=== PATIENT | female | born 1985 | race Caucasian/White ===

== ENCOUNTER → 2019-05-11 | Outpatient (CLI) | payer OTHER ==
--- NOTE | 2019-05-11 12:21 | Diagnostic Imaging Report ---
CLINICAL INDICATION: Patient with pain in neck for the last eight months. No known injury. EXAM: X-ray of the cervical spine, three views. COMPARISON: None. FINDINGS: There is no acute fracture or dislocation. Intervertebral disc heights are maintained. There are no significant degenerative changes. Odontoid views are unremarkable. There is no significant prevertebral soft tissue swelling. IMPRESSION: Unremarkable x-ray of the cervical spine. Dictated by: Dictated on workstation # [id number]
== END ==
LOC: RAD FS 11:51
PROVIDERS: ATTEND Nurse Practitioner Family
DX: M54.2 Cervicalgia (principal)
CPT/HCPCS: 72040

== ENCOUNTER → 2019-09-06 | Outpatient (CLI) | payer OTHER ==
--- NOTE | 2019-09-06 10:06 | Diagnostic Imaging Report ---
INDICATION: Low back pain, no known injury. TECHNIQUE: AP, lateral, and spot imaging of the lumbar spine. CORRELATION STUDY: None. FINDINGS: There is transitional anatomy with sacralization at L5. The lumbar spinal alignment is anatomic. The lumbar vertebral body heights are maintained. Spina bifida occulta defect at the L5-S1 level is present. The SI joints are unremarkable. IMPRESSION: No radiographic evidence for acute bony abnormality of the lumbar spine. Lumbosacral transitional anatomy. Dictated by: Dictated on workstation # [id number]
== END ==
LOC: RAD FS 09:25
PROVIDERS: ATTEND Nurse Practitioner Family
DX: M54.5 Low back pain (principal)
CPT/HCPCS: 72100

== ENCOUNTER → 2019-10-19 | Outpatient (CLI) | payer OTHER ==
--- NOTE | 2019-10-19 11:56 | Diagnostic Imaging Report ---
PROCEDURE: MRI lumbar spine. TECHNIQUE: Multiplanar, multisequence MRI of the lumbar spine was performed without contrast. INDICATION: Chronic low back pain. COMPARISON: No prior studies are available for comparison. FINDINGS: Curvature and alignment of the lumbar spine is normal. Vertebral body heights are maintained. Marrow signal intensity is unremarkable. No geographic marrow lesion or fracture is seen. There is some mild desiccation of the L4-L5 disc compatible with mild degenerative change. Disc height is maintained. The conus is unremarkable at the L1 level. T12-L1: The central canal is widely patent. Neural foramina are widely patent. L1-L2: Central canal is patent. Neural foramina are patent. L2-L3: The central canal is patent. Neural foramina are patent. L3-L4: Very mild wide-based midline disc bulge is noted producing slight indentation upon the ventral thecal sac. Central canal remains patent. There is moderate degenerative facet disease at this level. No neural foraminal stenosis is seen. L4-L5: Mild wide-based midline disc bulge is noted but no resultant central canal stenosis is detected. Neural foramina are widely patent. There are degenerative facet changes. L5-S1: Central canal and neural foramina are widely patent. The paraspinous tissues are unremarkable. IMPRESSION: Mild lower lumbar disc bulging and facet arthropathy. No resultant central canal or neural foraminal stenosis is identified. Dictated by: Dictated on workstation # [id number]
== END ==
LOC: RAD 09:35
PROVIDERS: ATTEND Nurse Practitioner Family
DX: M51.26 Other intervertebral disc displacement, lumbar region (principal); M47.816 Spondylosis without myelopathy or radiculopathy, lumbar region
CPT/HCPCS: 72148

== ENCOUNTER → 2020-01-23 | Outpatient (CLI) | payer OTHER ==
--- NOTE | 2020-01-23 12:23 | Diagnostic Imaging Report ---
INDICATION: 1st trimester spotting. COMPARISON: None available. TECHNIQUE: Transvaginal sonographic imaging of the pelvis was performed. FINDINGS: The uterus is retroverted. There is an anechoic gestational sac with normal morphology appropriately positioned at the level of the uterine fundus. Within the gestational sac, there is a normal-appearing yolk sac. Additionally pole is present which has a crown-rump length approximately 4-5 mm. No cardiac activity is seen at this time, although this is not atypical for an early normal gestation a crown-rump length less than 5 mm. A small amount of manuelito-gestational hemorrhage is present and encases less than 50% of gestational sac. Right ovary is normal in size measuring 1.8 x 2.1 x 1.0 cm. Left ovary measures 2.2 x 1.7 x 2.5 cm. Blood flow is seen in both ovaries by color Doppler imaging. IMPRESSION: 1. Intrauterine gestational sac has a yolk sac and pole that measures less than 5 mm. No cardiac activity is seen at this time which may be due to normal early development, although demise is possible as well. Follow-up beta hCG and ultrasound are suggested as deemed clinically indicated. 2. Moderate-sized manuelito-gestational hemorrhage encompassing approximately 50% of the gestational sac. Dictated by: Dictated on workstation # [id number]
== END ==
LOC: RAD 10:30
PROVIDERS: ATTEND Family Medicine
DX: O26.851 Spotting complicating pregnancy, first trimester (principal); Z3A.00 Weeks of gestation of pregnancy not specified
CPT/HCPCS: 76801; 76817

== ENCOUNTER → 2020-05-21 | Outpatient (CLI) | payer BC ==
[2020-05-21 10:43] LABS: HEMOGLOBIN 12.5 G/DL (11.5-16.0); MEAN PLATELET VOLUME 9.4 FL (7.4-10.4); WHITE BLOOD COUNT 7.7 10^3/uL (4.3-11.0)
== END ==
LOC: LAB FS 09:31
PROVIDERS: ATTEND Family Medicine
DX: O09.91 Supervision of high risk pregnancy, unspecified, first trimester (principal); Z3A.00 Weeks of gestation of pregnancy not specified
CPT/HCPCS: 36415; 85027; 86703; 86762; 86780; 86850; 86900; 86901; 87088; 87340

== ENCOUNTER → 2020-06-14 | Outpatient (CLI) | payer BC | LOC: FS 16:04 | PROVIDERS: ATTEND Family Medicine | DX: Z34.90 Encounter for supervision of normal pregnancy, unspecified, unspecified trimester (principal); Z3A.00 Weeks of gestation of pregnancy not specified ==

== ENCOUNTER → 2020-11-13 | Outpatient (CLI) | payer BC | LOC: LABNPT 16:02 | PROVIDERS: ATTEND Family Medicine | DX: Z34.93 Encounter for supervision of normal pregnancy, unspecified, third trimester (principal); Z3A.00 Weeks of gestation of pregnancy not specified | CPT/HCPCS: 87070; 87205 ==

== ENCOUNTER 2020-12-06 10:23 | Inpatient (IN) | payer OTHER ==
[~2020-12-06] VITALS: Ht 162.6 cm; Wt 91.2 kg
[2020-12-06] VITALS (44 sets, daily range): BP systolic 76–143; BP diastolic 39–90
[2020-12-06] MEDS ORDERED: MINERAL OIL CONCENTRATE 99.9% 15 ML UDC TOP PRN (12:00)
[2020-12-06] MEDS ORDERED: LIDOCAINE/EPI 2% 1:200,00 (XYLOCAINE) 20 ML VIAL INJ PRN (12:00)
[2020-12-06 12:26] LABS: BASOPHILS % (AUTO) 0 % (0-10); EOSINOPHILS # (AUTO) 0.1 10^3/uL (0.0-0.3); EOSINOPHILS % (AUTO) 1 % (0-10); HEMATOCRIT 36 % (35-52); HEMOGLOBIN 11.5 g/dL (11.5-16.0); LYMPHOCYTES # (AUTO) 1.3 10^3/uL (1.0-4.0); LYMPHOCYTES % (AUTO) 14 % (12-44); MEAN CORPUSCULAR HEMOGLOBIN 29 pg (25-34); MEAN CORPUSCULAR HGB CONC 32 g/dL (32-36); MEAN CORPUSCULAR VOLUME 88 fL (80-99); MEAN PLATELET VOLUME 10.1 fL (9.0-12.2); MONOCYTES # (AUTO) 0.5 10^3/uL (0.0-1.0); MONOCYTES % (AUTO) 5 % (0-12); NEUTROPHILS # (AUTO) 7.8 10^3/uL (1.8-7.8); NEUTROPHILS % (AUTO) 80 % (42-75); PLATELET COUNT 205 10^3/uL (130-400); WHITE BLOOD COUNT 9.8 10^3/uL (4.3-11.0)
[2020-12-06] MEDS ORDERED: OXYTOCIN PRE-MIX DRIP 500 ML IV SCH ×2 (12:45→19:30)
[2020-12-06] MEDS: D5 LR IV SOLUTION 1,000 ML IV SCH ×2 (12:50→17:15)
[2020-12-06] MEDS ORDERED: CATHETER FLUSH 10 ML SYR IV SCH ×2 (14:00→22:00)
[2020-12-06] MEDS ORDERED: fentaNYL 2 mcg/ml BUPIVA 0.125 100 ML ONE (15:02)
[2020-12-06] MEDS ORDERED: BUPIVACAINE 0.25% 30 ML (SENSORCAINE) VIAL ONE (15:05)
[2020-12-06] MEDS ORDERED: fentaNYL INJ 100 MCG/2 ML AMP ONE (15:05)
[2020-12-06] MEDS ORDERED: diphenhydrAMINE 50 MG/ML INJ (BENADRYL) IV PRN (15:45)
[2020-12-06] MEDS ORDERED: ONDANSETRON 4 MG/2 ML (SDV) Z0FRAN IV PRN (15:45)
[2020-12-06] MEDS ORDERED: NALOXONE 0.4 MG/ML 1 ML (NARCAN) VIAL IV PRN ×2 (15:45→19:30)
[2020-12-06] MEDS ORDERED: EPIDURAL (fentaNYL 2 MCG/ML BUPIVA 0.125%)100 ML BAG EPI PRN (15:45)
[2020-12-06] MEDS ORDERED: LACTATED RINGERS 1,000 ML IV SCH (15:45)
--- NOTE | 2020-12-06 16:39 | History & Physical-OB ---
OB - Chief Complaint & HPI Date/Time Date of Admission: Date of Admission: Dec 06, 2020 at 11:49 Date seen by a Provider: Dec 06, 2020 Time Seen by a Provider: 12:00 Chief Complaint/History OB-Reason for Admission/Chief: Onset of Labor Hx : 6 Hx Para: 3 Expected Date of Delivery: Dec 06, 2020 Gestational Age in Weeks: 38 Gestational Age in Days: 2 Admission Nurse Assessment Rev: Yes Allergies and Home Medications Allergies Coded Allergies: Sulfa (Sulfonamide Antibiotics) (Verified Allergy, Unknown, Hives, 12/06/20) Patient Home Medication List Home Medication List Reviewed: Yes OB - History Hx of Present Care: Yes Ultrasounds: Normal mid trimester US Obstetrical Complications: None Medical Complications: None Obstetrical History Hx : 6 Hx Para: 3 Hx Total # of Abortions (Spona: 2 Patient Past Medical History n/a Social History/Family History Alcohol Use: Denies Use Recreational Drug Use: No Immunizations Hepatitis A: No Hepatitis B: No OB - Admission Exam Physical Exam Vitals: Vital Signs 12/06/20 10:57 Temp 36.9 Pulse 99 Resp 18 Pulse Ox 98 O2 Delivery Room Air HEENT: NCAT Heart: Rhythm Normal Lungs: Clear Abdomen: Gravid Extremities: Normal Reflexes: Normal Cervical Dilatation: 4cm Effacement: 75% Station: -1 Membranes: Intact Heart Rate: 130's Accelerations: Accelerations Present Decelerations: No Decelerations Short Term Variability: Present Fund Manager Variability: Average (6-25) Contractions on Admission: 6-10 Minutes Apart Intensity: Mild Labs Laboratory Tests Test 12/06/20 12:10 Range/Units White Blood Count 9.8 4.3-11.0 10^3/uL Red Blood Count 4.04 3.80-5.11 10^6/uL Hemoglobin 11.5 11.5-16.0 g/dL Hematocrit 36 35-52 % Mean Corpuscular Volume 88 80-99 fL Mean Corpuscular Hemoglobin 29 25-34 pg Mean Corpuscular Hemoglobin Concent 32 32-36 g/dL Red Cell Distribution Width 14.8 H 10.0-14.5 % Platelet Count 205 130-400 10^3/uL Mean Platelet Volume 10.1 9.0-12.2 fL Immature Granulocyte % (Auto) 1 % Neutrophils (%) (Auto) 80 H 42-75 % Lymphocytes (%) (Auto) 14 12-44 % Monocytes (%) (Auto) 5 0-12 % Eosinophils (%) (Auto) 1 0-10 % Basophils (%) (Auto) 0 0-10 % Neutrophils # (Auto) 7.8 1.8-7.8 10^3/uL Lymphocytes # (Auto) 1.3 1.0-4.0 10^3/uL Monocytes # (Auto) 0.5 0.0-1.0 10^3/uL Eosinophils # (Auto) 0.1 0.0-0.3 10^3/uL Basophils # (Auto) 0.0 0.0-0.1 10^3/uL Immature Granulocyte # (Auto) 0.1 0.0-0.1 10^3/uL OB - Assessment/Plan/Diagnosis Assessment Assessment: active labor, induction of labor (35 yo ) Admission Dx 35 yo @ 38.6 Active labor GBS neg AMA Admission Status: Inpatient Order (span 2 midnights) Reason for Inpatient Admission: Active labor at 38 weeks Plan Plan: Expectant Management JIGNESH WONG DO Dec 06, 2020 16:39
[2020-12-06] MEDS ORDERED: HYDROcodone/APAP 5 MG/325 MG (LORTAB) TAB PO PRN (19:30)
[2020-12-06] MEDS ORDERED: MEASLES,MUMPS,RUBELLA 1 EA INJ SQ ONE (19:30)
[2020-12-06] MEDS ORDERED: TETANUS,DIPTH,PERTUSS P/F (BOOSTRIX) 0.5 ML VIAL IM ONE (19:30)
[2020-12-06] MEDS ORDERED: WITCH HAZEL(TUCKS) 40 EA JAR TOP PRN (19:30)
[2020-12-06] MEDS ORDERED: DIBUCAINE 1% OINTMENT 30 GM TUBE TOP PRN (19:30)
[2020-12-06] MEDS ORDERED: BENZOCAINE/MENTHOL (DERMOPLAST) 56 ML CAN TP PRN (19:30)
--- NOTE | 2020-12-06 19:32 | OB Labor & Delivery Record ---
L&D History Date of Service Date of Service: Dec 06, 2020 History Expected Date of Delivery: Dec 06, 2020 Gestational Age in Weeks: 38 Hx : 6 Hx Para: 3 Complications Events: Routine care Operative Indications (Cesarea: N/A-Vaginal Delivery Intrapartal Events: None L&D Stage1 Stage One Onset of Labor - Date: Dec 06, 2020 Monitors and Tracing Monitor Mode: Internal Heart Rate: 130 Monitor Decelerations: None Station: +1 Short Term Variability: Present Presentation: Vertex Vital Signs VS - Last 72 Hours, by Label 12/06/20 12/06/20 12/06/20 12/06/20 10:54 10:57 12:30 13:00 Temp 36.9 36.9 Pulse 99 99 96 86 Resp 18 18 18 18 B/P (MAP) 118/75 (89) 119/72 (88) Pulse Ox 98 98 O2 Delivery Room Air Room Air Room Air Room Air 12/06/20 12/06/20 12/06/20 12/06/20 13:15 13:30 13:45 14:00 Temp 36.5 Pulse 82 84 81 81 Resp 18 18 18 18 B/P (MAP) 106/56 (73) 105/58 (74) 113/68 (83) 113/67 (82) O2 Delivery Room Air Room Air Room Air Room Air 12/06/20 12/06/20 12/06/20 12/06/20 14:15 14:30 14:45 15:00 Pulse 83 85 75 75 Resp 18 18 18 18 B/P (MAP) 119/73 (88) 120/74 (89) 117/62 (80) 119/76 (90) O2 Delivery Room Air Room Air Room Air Room Air 12/06/20 12/06/20 12/06/20 12/06/20 15:15 15:20 15:25 15:30 Pulse 86 81 78 86 Resp 18 18 18 18 B/P (MAP) 136/71 (92) 123/76 (92) 118/76 (90) Pulse Ox 99 99 99 100 O2 Delivery Room Air Room Air Room Air Room Air 12/06/20 12/06/20 12/06/20 12/06/20 15:36 15:40 15:42 15:44 Pulse 62 71 78 78 Resp 18 18 18 18 B/P (MAP) 76/39 (51) 84/48 (60) 82/48 (59) 86/51 (63) Pulse Ox 99 99 99 98 O2 Delivery Room Air Room Air Room Air Room Air 12/06/20 12/06/20 12/06/20 12/06/20 15:45 15:46 15:48 15:51 Pulse 84 65 96 77 Resp 18 18 18 18 B/P (MAP) 86/51 (63) 107/58 (74) 99/56 (70) 120/60 (80) Pulse Ox 98 99 99 99 O2 Delivery Room Air Room Air Room Air Room Air 12/06/20 12/06/20 12/06/20 12/06/20 15:53 15:55 16:00 16:05 Pulse 101 102 81 Resp 18 18 18 B/P (MAP) 101/63 (76) 108/65 (79) 116/61 (79) Pulse Ox 99 99 100 O2 Delivery Room Air Room Air Room Air 12/06/20 12/06/20 12/06/20 12/06/20 16:15 16:20 16:30 16:45 Pulse 85 83 85 Resp 18 18 18 B/P (MAP) 103/76 (85) 109/68 (82) 120/76 (91) Pulse Ox 100 100 O2 Delivery Room Air Room Air Room Air Room Air 12/06/20 12/06/20 12/06/20 12/06/20 17:00 17:15 17:30 17:45 Temp 35.3 Pulse 85 77 72 80 Resp 18 18 18 18 B/P (MAP) 121/73 (89) 129/71 (90) 130/79 (96) 141/78 (99) O2 Delivery Room Air Room Air Room Air Room Air 12/06/20 12/06/20 12/06/20 12/06/20 18:00 18:15 18:30 18:45 Pulse 85 80 74 79 Resp 18 18 18 18 B/P (MAP) 125/68 (87) 123/71 (88) 125/68 (87) 136/76 (96) O2 Delivery Room Air Room Air Room Air Room Air 12/06/20 19:00 Pulse 79 Resp 18 B/P (MAP) 142/84 (103) O2 Delivery Room Air Rupture of Membranes Spontaneous Ruture of Membrane: No Amniotic Membrane Rupture Time: 1213 Amniotic Membrane Fluid Desc.: Clear Vaginal Bleeding Description: Normal Show Induction/Anesthesia Epidural Cath Placement - Time: 1523 Progress/Notes Patient admitted in labor, AROM performed after admission. She progressed rapidly with low dose pitocin to complete and +2 with receiving an epidural in the process. L&D Stage2 Stage Two Stage II Date: Dec 06, 2020 Monitors and Tracing Monitor Mode: External Heart Rate: 130 Monitor Accelerations: Uniform Monitor Decelerations: None Fpc Variability: Average (6-10) Short Term Variability: Present Position: Right Occiput Anterior Presentation: Vertex Cord Descript/Complications Cord Vessel Description: 3 Vessels Delivery Type Delivery Method: Spontaneous Vaginal Anterior Shoulder: Left Episiotomy/Perineal Laceration Laceraction(s)/Extensions: Yes Degree (describe repair) right labial laceration repaired using 3-0 rapide Condition of Infant Delivery 1 minute Comment: 7 5 minute Comment: 9 Notes Live female infant weight 6lbs 3 oz Condition of Condition of : Living Exam: No Observed Abnormalities Resuscitation Resuscitation: N/A - Spontaneous Resp L&D Stage3 Stage Three Stage III Date: Dec 06, 2020 Pictocin Pitocin Administration mu/min: 8 Pitocin ml/hr: 8 Pitocin Administration Comment: 30 mu wide open after delivery of placenta Placenta Delivery Placenta Delivery: Spontaneous Delivery Summary Summary Estimated blood loss (mL): 300 Attending at delivery: Jignesh Wong DO Condition of Delivery Examined: Cervix Examined, Uterus Explored Post Hemorrhage: No Condition of Mother stable Condition of (s) stable JIGNESH WONG DO Dec 06, 2020 19:32
--- NOTE | 2020-12-06 19:33 | Discharge Inst-Women's Service ---
Discharge Inst-Women's Serv Depart Medication/Instructions New, Converted or Re-Newed RX: Transmitted to Pharmacy Final Diagnosis PPD 1 NVD Problems Reviewed?: Yes Consults/Follow Up Additional Follow Up: Yes Orders/Referrals Dr. Wong in 6 weeks Activity Activity: Activity as Tolerated Driving Instructions: No Driving for 1 Week NO SMOKING: NO SMOKING Nothing Inside Vagina: No Douching, No [place], No Tampons Diet Discharge Diet: No Restrictions Symptoms to Report to : Bleeding Excessive, Pain Increased, Fever Over 101 Degrees F, Vaginal Bleeding Increase, Questions/Concerns For Any Problems or Questions: Contact Your Physician JIGNESH WONG DO Dec 06, 2020 19:33
[2020-12-06] MEDS ORDERED: DIBU30OI TOP (19:35)
[2020-12-06] MEDS ORDERED: DOCU-239 PO (19:35)
[2020-12-06] MEDS ORDERED: IBUP-844 PO (19:35)
[2020-12-06] MEDS ORDERED: BENZ78AE5 TP (19:35)
[2020-12-06] MEDS ORDERED: ACHD5005 PO (19:35)
[2020-12-06] MEDS: DOCUSATE SODIUM 100 MG (COLACE) CAP PO SCH (21:19)
[2020-12-06] MEDS: IBUPROFEN 600 MG (MOTRIN) TAB PO SCH (23:14)
[2020-12-07 01:00] VITALS: BP 120/62
[2020-12-07] MEDS: IBUPROFEN 600 MG (MOTRIN) TAB PO SCH ×3 (05:43→18:13)
[2020-12-07 05:45] VITALS: BP 114/65
[2020-12-07 06:01] LABS: BASOPHILS % (AUTO) 0 % (0-10); EOSINOPHILS # (AUTO) 0.2 10^3/uL (0.0-0.3); EOSINOPHILS % (AUTO) 1 % (0-10); HEMATOCRIT 33 % (35-52); LYMPHOCYTES # (AUTO) 1.9 10^3/uL (1.0-4.0); LYMPHOCYTES % (AUTO) 14 % (12-44); MEAN CORPUSCULAR HEMOGLOBIN 29 pg (25-34); MEAN CORPUSCULAR HGB CONC 33 g/dL (32-36); MEAN CORPUSCULAR VOLUME 88 fL (80-99); MONOCYTES # (AUTO) 0.6 10^3/uL (0.0-1.0); MONOCYTES % (AUTO) 5 % (0-12); NEUTROPHILS # (AUTO) 10.6 10^3/uL (1.8-7.8); NEUTROPHILS % (AUTO) 79 % (42-75); PLATELET COUNT 200 10^3/uL (130-400); WHITE BLOOD COUNT 13.4 10^3/uL (4.3-11.0)
[2020-12-07] MEDS ORDERED: PRENATAL VITAMIN 1 EA TAB PO SCH (07:00)
--- NOTE | 2020-12-07 08:00 | Postpartum Progress Note ---
Note Note Day # 1 Subjective: Patient is without complaints. Ambulating, voiding. Tolerating a regular diet without nausea or vomiting. Normal lochia. Pain is well controlled with oral pain medications. Objective: Physical Exam: General - Alert and oriented, no apparent distress Abdomen - Soft, appropriately tender to palpation, non-distended, fundus firm at umbilicus Extremities - no edema, negative Favian's bilaterally Assessment: Post- day # 1, status post vaginal delivery. Recovering well, hemodynamically stable Acute blood loss anemia Plan: Routine care. Encourage breast feeding. Encourage ambulation. Ferrous sulfate supplementation. Plan for discharge this evening Vitals - Labs Vital Signs - I&O Vital Signs Date Time Temp Pulse Resp B/P (MAP) Pulse Ox O2 Delivery O2 Flow Rate FiO2 12/07/20 05:45 36.5 75 18 114/65 (81) 98 Room Air 12/07/20 01:00 36.4 99 18 120/62 (81) 96 Room Air 12/06/20 20:49 103 18 123/72 (89) Room Air 12/06/20 20:37 81 18 120/74 (89) Room Air 12/06/20 20:15 96 18 135/90 (105) Room Air 12/06/20 19:45 36.8 106 18 143/70 (94) Room Air 12/06/20 19:30 108 18 140/73 (95) Room Air 12/06/20 19:15 97 18 130/63 (85) Room Air 12/06/20 19:00 79 18 142/84 (103) Room Air 12/06/20 18:45 79 18 136/76 (96) Room Air 12/06/20 18:30 74 18 125/68 (87) Room Air 12/06/20 18:15 80 18 123/71 (88) Room Air 12/06/20 18:00 85 18 125/68 (87) Room Air 12/06/20 17:45 80 18 141/78 (99) Room Air 12/06/20 17:30 72 18 130/79 (96) Room Air 12/06/20 17:15 77 18 129/71 (90) Room Air 12/06/20 17:00 35.3 85 18 121/73 (89) Room Air 12/06/20 16:45 85 18 120/76 (91) Room Air 12/06/20 16:30 Room Air 12/06/20 16:20 83 18 109/68 (82) 100 Room Air 12/06/20 16:15 85 18 103/76 (85) 100 Room Air 12/06/20 16:05 81 18 116/61 (79) 100 12/06/20 16:00 Room Air 12/06/20 15:55 102 18 108/65 (79) 99 Room Air 12/06/20 15:53 101 18 101/63 (76) 99 Room Air 12/06/20 15:51 77 18 120/60 (80) 99 Room Air 12/06/20 15:48 96 18 99/56 (70) 99 Room Air 12/06/20 15:46 65 18 107/58 (74) 99 Room Air 12/06/20 15:45 84 18 86/51 (63) 98 Room Air 12/06/20 15:44 78 18 86/51 (63) 98 Room Air 12/06/20 15:42 78 18 82/48 (59) 99 Room Air 12/06/20 15:40 71 18 84/48 (60) 99 Room Air 12/06/20 15:36 62 18 76/39 (51) 99 Room Air 12/06/20 15:30 86 18 100 Room Air 12/06/20 15:25 78 18 118/76 (90) 99 Room Air 12/06/20 15:20 81 18 123/76 (92) 99 Room Air 12/06/20 15:15 86 18 136/71 (92) 99 Room Air 12/06/20 15:00 75 18 119/76 (90) Room Air 12/06/20 14:45 75 18 117/62 (80) Room Air 12/06/20 14:30 85 18 120/74 (89) Room Air 12/06/20 14:15 83 18 119/73 (88) Room Air 12/06/20 14:00 36.5 81 18 113/67 (82) Room Air 12/06/20 13:45 81 18 113/68 (83) Room Air 12/06/20 13:30 84 18 105/58 (74) Room Air 12/06/20 13:15 82 18 106/56 (73) Room Air 12/06/20 13:00 86 18 119/72 (88) Room Air 12/06/20 12:30 96 18 118/75 (89) Room Air 12/06/20 10:57 36.9 99 18 98 Room Air 12/06/20 10:54 36.9 99 18 98 Room Air I & O 12/07/20 07:00 Intake Total 1000 ml Balance 1000 ml Labs Laboratory Tests 12/06/20 12:10: White Blood Count 9.8, Red Blood Count 4.04, Hemoglobin 11.5, Hematocrit 36, Mean Corpuscular Volume 88, Mean Corpuscular Hemoglobin 29, Mean Corpuscular Hemoglobin Concent 32, Red Cell Distribution Width 14.8H, Platelet Count 205, Mean Platelet Volume 10.1, Immature Granulocyte % (Auto) 1, Neutrophils (%) (Auto) 80H, Lymphocytes (%) (Auto) 14, Monocytes (%) (Auto) 5, Eosinophils (%) (Auto) 1, Basophils (%) (Auto) 0, Neutrophils # (Auto) 7.8, Lymphocytes # (Auto) 1.3, Monocytes # (Auto) 0.5, Eosinophils # (Auto) 0.1, Basophils # (Auto) 0.0, Immature Granulocyte # (Auto) 0.1 12/07/20 05:51: White Blood Count 13.4H, Red Blood Count 3.79L, Hemoglobin 11.0L, Hematocrit 33L , Mean Corpuscular Volume 88, Mean Corpuscular Hemoglobin 29, Mean Corpuscular Hemoglobin Concent 33, Red Cell Distribution Width 14.9H, Platelet Count 200, Mean Platelet Volume 10.0, Immature Granulocyte % (Auto) 1, Neutrophils (%) (Auto) 79H, Lymphocytes (%) (Auto) 14, Monocytes (%) (Auto) 5, Eosinophils (%) (Auto) 1, Basophils (%) (Auto) 0, Neutrophils # (Auto) 10.6H, Lymphocytes # (Auto) 1.9, Monocytes # (Auto) 0.6, Eosinophils # (Auto) 0.2, Basophils # (Auto) 0.0, Immature Granulocyte # (Auto) 0.1 EFRAIN COOPER APRN Dec 07, 2020 08:00
[2020-12-07] MEDS: DOCUSATE SODIUM 100 MG (COLACE) CAP PO SCH (08:29)
[2020-12-07 08:32] VITALS: BP 122/71
[2020-12-07] MEDS ORDERED: FERROUS SULF 325 MG (IRON) TAB PO SCH (09:00)
[2020-12-07 12:13] VITALS: BP 128/81
--- NOTE | 2020-12-07 13:16 | Anesthesia-General Post-Op ---
General Patient Condition Mental Status/LOC: Same as Preop Cardiovascular: Satisfactory Nausea/Vomiting: Absent Respiratory: Satisfactory Pain: Controlled Complications: Absent Post Op Complications Complications None Follow Up Care/Instructions Patient Instructions None needed. Anesthesia/Patient Condition Patient Condition Patient is doing well, no complaints, stable vital signs, no apparent adverse anesthesia problems. No complications reported per nursing. ELLEN ENGLISH CRNA Dec 07, 2020 13:16
[2020-12-07 18:16] VITALS: BP 128/77
[2020-12-07 21:00] VITALS: BP 128/68
== END 2020-12-07 21:00 | disposition home or self-care (01) | DRG 806 ==
LOC: WSo 10:23 → LDRP 10:25 → WSo 11:49 → LDRP 12-07 16:47
PROVIDERS: ADMIT Obstetrics & Gynecology; ATTEND Obstetrics & Gynecology
PROC: 10E0XZZ Delivery of Products of Conception, External Approach (ICD-10-PCS; principal; 2020-12-06)
PROC: 0UQMXZZ Repair Vulva, External Approach (ICD-10-PCS; 2020-12-06)
DX: O70.0 First degree perineal laceration during delivery (principal); D62 Acute posthemorrhagic anemia; Z37.0 Single live birth; Z3A.38 38 weeks gestation of pregnancy; O90.81 Anemia of the puerperium; Z88.2 Allergy status to sulfonamides
CPT/HCPCS: 36415; 85025; 86850; 86900; 86901; 99212

== ENCOUNTER → 2022-12-24 | Outpatient (CLI) | payer OTHER ==
[~2022-12-24] MED LIST: ACHD5005 PO; BENZ78AE5 TP; DIBU30OI TOP; DOCU-239 PO; IBUP-844 PO
== END ==
LOC: LABNPT 13:31
PROVIDERS: ATTEND Family Medicine
DX: Z53.9 Procedure and treatment not carried out, unspecified reason (principal)

== ENCOUNTER 2023-01-20 06:18 | Inpatient (IN) | payer OTHER ==
[~2023-01-20] VITALS: Ht 162.6 cm; Wt 87.3 kg
[2023-01-20] VITALS (18 sets, daily range): BP systolic 102–130; BP diastolic 58–82
--- NOTE | 2023-01-20 07:32 | History & Physical-OB ---
OB - Chief Complaint & HPI Date/Time Date of Admission: Date of Admission: Date seen by a Provider: Jan 20, 2023 Time Seen by a Provider: 07:35 Chief Complaint/History OB-Reason for Admission/Chief: Onset of Labor Hx : 7 Hx Para: 4 Expected Date of Delivery: Jan 24, 2023 Gestational Age in Weeks: 39 Gestational Age in Days: 3 Admission Nurse Assessment Rev: Yes History of Labs A neg GBS neg Allergies and Home Medications Allergies Coded Allergies: Sulfa (Sulfonamide Antibiotics) (Verified Allergy, Unknown, Hives, 12/06/20) Patient Home Medication List Home Medication List Reviewed: Yes Benzocaine/Menthol (Dermoplast Pain Relieving [place]) 78 Gm Aerosol, 56 EA TP UD PRN for PAIN- SEE INSTRUCTIONS Prescribed by: JIGNESH WONG on 12/06/201934 Dibucaine (Dibucaine) 30 Gm Oint, 0 GM TOP UD PRN for PAIN- SEE INSTRUCTIONS Prescribed by: JIGNESH WONG on 12/06/201934 Docusate Sodium (Dok) 100 Mg Capsule, 100 MG PO BID PRN for CONSTIPATION-1ST LINE Prescribed by: JIGNESH WONG on 12/06/201934 Hydrocodone Bit/Acetaminophen (HYDROcodone/APAP 5 MG/325 MG TAB) 1 Tab Tab, 1 EA PO Q4H PRN for PAIN-MODERATE (5-7) Prescribed by: JIGNESH WONG on 12/06/201935 Ibuprofen (Ibu) 600 Mg Tablet, 600 MG PO Q6HR Prescribed by: JIGNESH WONG on 12/06/201934 OB - History Hx of Present Care: Yes Ultrasounds: Normal mid trimester US Obstetrical Complications: None Medical Complications: None Patient Past Medical History n/a Immunizations First/Initial COVID19 Vaccine: 10/19/20 Second COVID19 Vaccination: 11/09/20 Hepatitis A: No Hepatitis B: No OB - Admission Exam Physical Exam HEENT: NCAT Heart: Rhythm Normal Lungs: Clear Abdomen: Gravid Extremities: Normal Reflexes: Normal Cervical Dilatation: 4cm Effacement: 75% Station: -2 Membranes: Intact Amniotic Fluid: Clear Heart Rate: 130's Accelerations: Accelerations Present Decelerations: No Decelerations Short Term Variability: Present Stake Driver Variability: Average (6-25) Contractions on Admission: 6-10 Minutes Apart Intensity: Mild OB - Assessment/Plan/Diagnosis Assessment Assessment: active labor Admission Dx 37 yo @ 39 weeks Active labor GBS neg Admission Status: Inpatient Order (span 2 midnights) Reason for Inpatient Admission: 39 week active labor Plan Plan: Expectant Management JIGNESH WONG DO Jan 20, 2023 07:32
[2023-01-20] MEDS ORDERED: LACTATED RINGERS 1,000 ML 500 ML IV PRN (07:45)
[2023-01-20] MEDS ORDERED: D5 LR 1,000 ML IV SOLN 1,000 ML IV SCH (07:45)
[2023-01-20 08:10] LABS: BASOPHILS % (AUTO) 0 % (0-10); EOSINOPHILS # (AUTO) 0.1 10^3/uL (0.0-0.3); EOSINOPHILS % (AUTO) 0 % (0-10); HEMATOCRIT 36 % (35-52); HEMOGLOBIN 12.1 g/dL (11.5-16.0); LYMPHOCYTES # (AUTO) 1.4 10^3/uL (1.0-4.0); LYMPHOCYTES % (AUTO) 12 % (12-44); MEAN CORPUSCULAR HEMOGLOBIN 30 pg (25-34); MEAN CORPUSCULAR HGB CONC 34 g/dL (32-36); MEAN CORPUSCULAR VOLUME 89 fL (80-99); MEAN PLATELET VOLUME 9.8 fL (9.0-12.2); MONOCYTES # (AUTO) 0.4 10^3/uL (0.0-1.0); MONOCYTES % (AUTO) 4 % (0-12); NEUTROPHILS # (AUTO) 9.6 10^3/uL (1.8-7.8); NEUTROPHILS % (AUTO) 84 % (42-75); PLATELET COUNT 193 10^3/uL (130-400); WHITE BLOOD COUNT 11.5 10^3/uL (4.3-11.0)
[2023-01-20] MEDS ORDERED: fentaNYL 2 mcg/ml BUPIVA 0.125 100 ML ONE (08:34)
[2023-01-20] MEDS ORDERED: BUPIVACAINE 0.25% 10 ML VIAL ONE (08:54)
[2023-01-20] MEDS ORDERED: fentaNYL INJECTION 100 MCG/2 ML VIAL ONE (08:54)
[2023-01-20] MEDS ORDERED: fentaNYL 2 mcg/ml BUPIVA 0.125 100 ML EPI SCH (09:00)
[2023-01-20] MEDS ORDERED: NALOXONE 0.4 MG/ML 1 ML VIAL IV PRN ×2 (09:00→13:00)
[2023-01-20] MEDS ORDERED: LACTATED RINGERS 1,000 ML 1,000 ML IV SCH (09:00)
[2023-01-20] MEDS ORDERED: ONDANSETRON INJECTION 4 MG/2 ML (SDV) IV PRN (09:00)
[2023-01-20] MEDS ORDERED: diphenhydrAMINE INJ 50 MG/ML VIAL IV PRN (09:00)
[2023-01-20] MEDS ORDERED: OXYTOCIN DRIP PRE-MIX 500 ML IV SCH ×2 (10:30→13:00)
[2023-01-20] MEDS ORDERED: LIDOCAINE 2% w/EPI 1:200,000 20 ML VIAL ONE (12:10)
[2023-01-20] MEDS ORDERED: METHYLERGONOVINE INJ 0.2 MG/ML AMP ONE (12:45)
--- NOTE | 2023-01-20 12:51 | OB Labor & Delivery Record ---
L&D History Date of Service Date of Service: Jan 20, 2023 History Expected Date of Delivery: Jan 24, 2023 Gestational Age in Weeks: 39 Hx : 7 Hx Para: 4 Complications Events: Routine care Operative Indications (Cesarea: N/A-Vaginal Delivery Intrapartal Events: None L&D Stage1 Stage One Onset of Labor - Date: Jan 20, 2023 Monitors and Tracing Monitor Mode: External Heart Rate: 140 Monitor Accelerations: Uniform Monitor Decelerations: None Station: -1 Radar Systems Engineer Variability: Average (6-10) Short Term Variability: Present Presentation: Vertex Vital Signs VS - Last 72 Hours, by Label 01/20/23 01/20/23 01/20/23 01/20/23 06:30 06:30 09:15 09:30 Temp 36.4 36.4 Pulse 82 82 92 77 Resp 18 18 20 20 B/P (MAP) 123/82 (96) 120/76 (91) 124/63 (83) Pulse Ox 98 98 98 92 O2 Delivery Room Air Room Air Room Air Room Air 01/20/23 01/20/23 01/20/23 01/20/23 09:45 10:15 10:30 10:45 Pulse 96 86 95 92 Resp 20 20 20 20 B/P (MAP) 129/60 (83) 112/65 (81) 102/58 (73) 113/70 (84) Pulse Ox 98 100 99 99 O2 Delivery Room Air Room Air Room Air Room Air Rupture of Membranes Spontaneous Ruture of Membrane: Yes Amniotic Membrane Rupture Time: 0806 Amniotic Membrane Fluid Desc.: Clear Vaginal Bleeding Description: Normal Show Induction/Anesthesia Epidural Cath Placement - Time: 911 Progress/Notes Patient presented in active labor. AROM performed at 4-5 cm, she received an epidural and progressed with 4 mu pitocin augmentation to complete and + 2 station. L&D Stage2 Stage Two Stage II Date: Jan 20, 2023 Monitors and Tracing Monitor Mode: External Heart Rate: 140 Monitor Decelerations: None Radar Systems Engineer Variability: Average (6-10) Short Term Variability: Present Position: Right Occiput Anterior Presentation: Vertex Cord Descript/Complications Cord Vessel Description: 3 Vessels Delivery Type Infant Delivery Method: Spontaneous Vaginal Anterior Shoulder: Left Episiotomy/Perineal Laceration Laceraction(s)/Extensions: No Condition of Delivery 1 minute Comment: 9 5 minute Comment: 9 Condition of Condition of : Living Exam: No Observed Abnormalities live male infant weight 7lbs even Resuscitation Resuscitation: N/A - Spontaneous Resp L&D Stage3 Stage Three Stage III Date: Jan 20, 2023 Pictocin Pitocin Administration mu/min: 2 Pitocin ml/hr: 2 Pitocin Administration Comment: 30 mu wide open after delivery of placnta Placenta Delivery Placenta Delivery: Spontaneous Delivery Summary Summary Estimated blood loss (mL): 250 Attending at delivery: Jignesh Wong DO Condition of Delivery Examined: Cervix Examined, Uterus Explored Post Hemorrhage: No Condition of Mother stable Condition of Infant (s) stable JIGNESH WONG DO Jan 20, 2023 12:51
--- NOTE | 2023-01-20 12:54 | Discharge Inst-Women's Service ---
Discharge Inst-Women's Serv Depart Medication/Instructions New, Converted or Re-Newed RX: Transmitted to Pharmacy Final Diagnosis PPD 1 NVD Problems Reviewed?: Yes Consults/Follow Up Additional Follow Up: Yes Orders/Referrals Dr. Wong in 6 weeks Activity Activity: Activity as Tolerated Driving Instructions: No Driving for 1 Week NO SMOKING: NO SMOKING Nothing Inside Vagina: No Douching, No [place], No Tampons Diet Discharge Diet: No Restrictions Symptoms to Report to : Bleeding Excessive, Pain Increased, Fever Over 101 Degrees F, Vaginal Bleeding Increase, Questions/Concerns For Any Problems or Questions: Contact Your Physician JIGNESH WONG DO Jan 20, 2023 12:53
[2023-01-20] MEDS ORDERED: BENZ78AE5 TP (12:55)
[2023-01-20] MEDS ORDERED: ACET-93 PO (12:55)
[2023-01-20] MEDS ORDERED: IBUP-844 PO (12:55)
[2023-01-20] MEDS ORDERED: DOCU100C37 PO (12:55)
[2023-01-20] MEDS ORDERED: DIBU30OI TOP (12:55)
[2023-01-20] MEDS ORDERED: WITCH HAZEL(TUCKS) 40 EA JAR TOP PRN (13:00)
[2023-01-20] MEDS ORDERED: DIBUCAINE 1% OINTMENT 28 GM TUBE TOP PRN (13:00)
[2023-01-20] MEDS ORDERED: MEASLES, MUMPS, RUBELLA VACCINE (MMR) SQ ONE (13:00)
[2023-01-20] MEDS ORDERED: Tetanus/Diphtheria/Pertussis (Acell) ADULT Vaccine 0.5 ML IM ONE (13:00)
[2023-01-20] MEDS ORDERED: ceFAZolin INJECTION 2,000 MG in NS (IVPB) 50 ML 50 ML IV ONE (13:00)
[2023-01-20] MEDS ORDERED: BENZOCAINE/MENTHOL (DERMOPLAST) 56 ML CAN TP PRN (13:00)
[2023-01-20] MEDS ORDERED: CATHETER FLUSH 10 ML SYR IV SCH ×2 (14:00)
[2023-01-20] MEDS ORDERED: METHYLERGONOVINE INJ 0.2 MG/ML AMP IM ONE (15:30)
[2023-01-20] MEDS: ACETAMINOPHEN 500 MG TABLET PO SCH ×2 (16:12→22:22)
[2023-01-20] MEDS: IBUPROFEN 600 MG TABLET PO SCH ×2 (16:13→22:22)
[2023-01-20] MEDS: DOCUSATE SODIUM 100 MG CAPSULE PO SCH (22:22)
[2023-01-21 03:20] VITALS: BP 89/56
[2023-01-21] MEDS: IBUPROFEN 600 MG TABLET PO SCH ×2 (03:49→08:37)
[2023-01-21] MEDS: ACETAMINOPHEN 500 MG TABLET PO SCH ×2 (03:49→08:37)
[2023-01-21 06:25] LABS: BASOPHILS % (AUTO) 0 % (0-10); EOSINOPHILS # (AUTO) 0.1 10^3/uL (0.0-0.3); EOSINOPHILS % (AUTO) 1 % (0-10); HEMATOCRIT 34 % (35-52); LYMPHOCYTES # (AUTO) 1.9 10^3/uL (1.0-4.0); LYMPHOCYTES % (AUTO) 18 % (12-44); MEAN CORPUSCULAR HEMOGLOBIN 30 pg (25-34); MEAN CORPUSCULAR HGB CONC 33 g/dL (32-36); MEAN CORPUSCULAR VOLUME 91 fL (80-99); MEAN PLATELET VOLUME 9.7 fL (9.0-12.2); MONOCYTES # (AUTO) 0.6 10^3/uL (0.0-1.0); MONOCYTES % (AUTO) 5 % (0-12); NEUTROPHILS # (AUTO) 7.9 10^3/uL (1.8-7.8); NEUTROPHILS % (AUTO) 75 % (42-75); PLATELET COUNT 176 10^3/uL (130-400); WHITE BLOOD COUNT 10.6 10^3/uL (4.3-11.0)
[2023-01-21] MEDS ORDERED: PRENATAL VITAMIN TABLET PO SCH (07:00)
--- NOTE | 2023-01-21 08:12 | Postpartum Progress Note ---
Note Note Day # 1 Subjective: Patient is without complaints. Ambulating, voiding. Tolerating a regular diet without nausea or vomiting. Normal lochia. Pain is well controlled with oral pain medications. Objective: Physical Exam: General - Alert and oriented, no apparent distress Abdomen - Soft, appropriately tender to palpation, non-distended, fundus firm at umbilicus Extremities - no edema, negative Favian's bilaterally Assessment: PPD 1 NVD Acute blood loss anemia Plan: Routine care. Encourage breast feeding. Encourage ambulation. Ferrous sulfate supplementation. Plan for discharge today Vitals - Labs Vital Signs - I&O Vital Signs Date Time Temp Pulse Resp B/P (MAP) Pulse Ox O2 Delivery O2 Flow Rate FiO2 01/21/23 03:20 36.4 76 18 89/56 (67) 97 Room Air 01/20/23 22:22 36.6 85 18 123/68 (86) 96 Room Air 01/20/23 18:50 36.4 75 18 120/72 (88) 97 Room Air 01/20/23 14:01 85 20 119/71 (87) Room Air 01/20/23 13:52 73 20 114/66 (82) Room Air 01/20/23 13:37 86 20 124/62 (82) Room Air 01/20/23 13:21 90 18 130/75 (93) Room Air 01/20/23 13:12 96 128/64 (85) 01/20/23 12:30 37.2 79 20 117/58 (77) 99 Room Air 01/20/23 12:15 78 20 100 Room Air 01/20/23 12:00 76 20 130/71 (90) 100 Room Air 01/20/23 11:45 74 20 123/73 (90) 99 Room Air 01/20/23 11:30 79 20 100 Room Air 01/20/23 11:15 84 20 125/61 (82) 100 Room Air 01/20/23 11:00 86 20 100 Room Air 01/20/23 10:45 92 20 113/70 (84) 99 Room Air 01/20/23 10:30 95 20 102/58 (73) 99 Room Air 01/20/23 10:15 86 20 112/65 (81) 100 Room Air 01/20/23 09:45 96 20 129/60 (83) 98 Room Air 01/20/23 09:30 77 20 124/63 (83) 92 Room Air 01/20/23 09:15 92 20 120/76 (91) 98 Room Air Labs Laboratory Tests 01/21/23 06:10: White Blood Count 10.6, Red Blood Count 3.72L, Hemoglobin 11.0L, Hematocrit 34L, Mean Corpuscular Volume 91, Mean Corpuscular Hemoglobin 30, Mean Corpuscular Hemoglobin Concent 33, Red Cell Distribution Width 13.6, Platelet Count 176, Mean Platelet Volume 9.7, Immature Granulocyte % (Auto) 1, Neutrophils (%) (Auto) 75, Lymphocytes (%) (Auto) 18, Monocytes (%) (Auto) 5, Eosinophils (%) (Auto) 1, Basophils (%) (Auto) 0, Neutrophils # (Auto) 7.9H, Lymphocytes # (Auto) 1.9, Monocytes # (Auto) 0.6, Eosinophils # (Auto) 0.1, Basophils # (Auto) 0.0, Immature Granulocyte # (Auto) 0.1 JIGNESH WONG DO Jan 21, 2023 08:12
[2023-01-21] MEDS: DOCUSATE SODIUM 100 MG CAPSULE PO SCH (08:37)
[2023-01-21 08:40] VITALS: BP 126/74
[2023-01-21] MEDS ORDERED: FERROUS SULFATE 325 MG (IRON) TABLET PO SCH (09:00)
--- NOTE | 2023-01-21 15:46 | Anesthesia-Regional Post-Op ---
Regional Patient Condition Mental Status: Alert, Oriented x3 Circulation: Same as Pre-Op Headache: Absent Sensation: Full Recovery Motor Block: Absent Post Op Complications Complications None Follow Up Care/Instructions Patient Instructions None needed. Anesthesia/Patient Condition Patient was discharged to home approximately one hour ago and she was doing well with no complaints, stable vital signs, no apparent adverse anesthesia problems. No complications reported per nursing. TODD CALDWELL DO Jan 21, 2023 15:46
== END 2023-01-21 14:25 | disposition home or self-care (01) | DRG 806 ==
LOC: WSo 06:18 → LDRP 06:19 → WSo 06:54 → LDRP 06:55
PROVIDERS: ADMIT Obstetrics & Gynecology; ATTEND Obstetrics & Gynecology
PROC: 10E0XZZ Delivery of Products of Conception, External Approach (ICD-10-PCS; principal; 2023-01-20)
DX: O90.81 Anemia of the puerperium (principal); D62 Acute posthemorrhagic anemia; Z37.0 Single live birth; Z88.2 Allergy status to sulfonamides; Z79.899 Other long term (current) drug therapy; Z79.891 Long term (current) use of opiate analgesic; Z79.1 Long term (current) use of non-steroidal anti-inflammatories (NSAID)
CPT/HCPCS: 36415; 85025; 86780; 99212